=== PATIENT | female | born 1950 ===

== ENCOUNTER 2018-10-30 05:48 | Day surgery (SDC) | payer OTHER ==
--- NOTE | 2018-10-27 17:30 | Pre-op HX & Phy Repo 2 SIG ---
DATE OF ADMISSION: 10/30/2018 DATE OF SURGERY: 10/30/2018. PREOPERATIVE DIAGNOSIS: Total retinal detachment, left eye. BRIEF NOTE: This is a first [facility] admission for Ms. Naranjo. This is a very nice 67-year-old lady, who complained of blurred vision in the left eye after cataract surgery. On examination, she was found to have a total retinal detachment on this side. PAST OCULAR HISTORY: Remarkable for a similar cataract surgery done on the right eye in July of 2017 with out problems. MEDICAL HISTORY: Remarkable for hypertension. MEDICATIONS: She is on metoprolol and hydrochlorothiazide for this condition as well as pravastatin for elevated cholesterol and levothyroxine. ALLERGIES: She is allergic to sulfa and penicillins. OCULAR EXAMINATION: Best vision at the time of admission was 20/25 in the right eye and counting fingers at 2 feet in the left with pressures of 18 and 3. The anterior segment on the right showed a posterior chamber lens in good position. The left eye showed a similar position in posterior chamber lens. Funduscopic exam of the right eye showed a choroidal nevus inferior and slightly nasal to the nerve, but appeared flat and benign. The periphery was without retinal tears. The left fundus showed a macula off total retinal detachment. There was suspicion of the retinal break at the 10 o'clock position mixed with a fold. General physical examination was done by the patient's arabic professor, Dr. Araya. ASSESSMENT: Macula off retinal detachment, total, left eye. PLAN: The plan is to perform a pars plana vitrectomy with scleral buckling, endo drainage, endolaser, and probable silicone oil injection in the left eye. The risks and benefits of surgery were gone over with the patient with potential for infection, the need for additional operations, recurrent detachment, and remote possibility of loss of the eye. The risk of anesthesia was discussed. The patient understands and consents to the surgery, which will be performed on Tuesday. Hank Hernandez M.D. DR: SEEMA JOB#: [id number] CC:
[~2018-10-30] VITALS: Ht 170.2 cm; Wt 108.4 kg
[2018-10-30] VITALS (9 sets, daily range): BP systolic 135–148; BP diastolic 55–95
[~2018-10-30 05:48] MED LIST: ASPIRIN81 MG ORAL; ATORVASTATIN CA20 MG ORAL; HYDROCHLOROTH12.5 M2 ORAL; LEVOTHYROXINE75 MCG ORAL; METOPROLOL TART25 MG ORAL
[2018-10-30] MEDS ORDERED: Phenylephrine 2.5% Op 2ml Soln ONE (05:52)
[2018-10-30] MEDS ORDERED: Flurbiprofen 0.03% Opth Sol 2.5ml ONE (05:52)
[2018-10-30] MEDS ORDERED: Vigamox Opth Soln 3ml ONE (05:52)
[2018-10-30] MEDS ORDERED: Cyclopentolate 1% Opth Sol 2ml ONE (05:52)
[2018-10-30] MEDS: Phenylephrine 2.5% Op 2ml Soln LEFT EYE SCH ×3 (06:18→06:29)
[2018-10-30] MEDS: Cyclopentolate 1% Opth Sol 2ml LEFT EYE SCH ×3 (06:18→06:29)
[2018-10-30] MEDS: Vigamox Opth Soln 3ml LEFT EYE SCH ×3 (06:18→06:29)
[2018-10-30] MEDS: Flurbiprofen 0.03% Opth Sol 2.5ml LEFT EYE SCH ×3 (06:18→06:29)
[2018-10-30] MEDS ORDERED: LR 1000ml 1,000 ML IVLG SCH (07:16)
--- NOTE | 2018-10-30 07:16 | Anethesia Preoperative Eval ---
Anesthesia Pre-op PMH/ROS General Date of Evaluation: Oct 30, 2018 Anesthesiologist: Geo ASA Score: ASA 2 Mallampati Score Class I : Soft palate, uvula, fauces, pillars visible Class II: Soft palate, uvula, fauces visible Class III: Soft palate, base of uvula visible Class IV: Only hard plate visible Mallampati Classification: Class III Surgeon: Carmel Diagnosis: Left retinal detachment Surgical Procedure: Left eye vitrectomy Anesthesia History: none Family History: no anesthesia problems Allergies: Coded Allergies: PENICILLINS (Verified Allergy, Unknown, 10/27/18) SULFA (SULFONAMIDE ANTIBIOTICS) (Verified Allergy, Unknown, 10/27/18) Medications: see eMAR Patient NPO?: Yes NPO Date: Oct 29, 2018 NPO Time: 22:00 Past Medical History Cardiovascular: Reports: HTN, other - HLD; Denies: CAD, [place], valve dz, arrhythmia Pulmonary: Denies: asthma, COPD, SANDHYA, other Gastrointestinal/Genitourinary: Reports: GERD; Denies: CRI, ESRD, other Neurologic/Psychiatric: Denies: dementia, CVA, depression/anxiety, TIA, other Endocrine: Reports: hypothyroidism; Denies: DM, steroids, other HEENT: Reports: [place] (L), [place] (R); Denies: cataract (L), cataract (R), glaucoma, other Hematology/Immune: Denies: anemia, DVT, bleeding disorder, other Musculoskeletal/Integumentary: Denies: OA, RA, DJD, DDD, edema, other Other: obesity - morbid PSxH Narrative: lap sukhwinder, b cataracts, T&A Anesthesia Pre-op Phys. Exam Physician Exam Last Vital Signs Date Time Temp Pulse Resp B/P (MAP) Pulse Ox O2 Delivery O2 Flow Rate FiO2 10/30/18 06:27 Room Air 10/30/18 06:15 97.1 68 18 144/55 98 Constitutional: NAD Cardiovascular: RRR Respiratory: CTA Airway Exam Mallampati Score: Class III MO: limited Neck: short, obese ROM: limited Anesthesia Pre-op A/P Labs see chart Studies Pre-op Studies: EKG - sr Risk Assessment & Plan Assessment: ASA II Plan: GA- as per surgical request Status Change Before Surgery: No Pre-Antibiotics Drug: N/A Cassandra Finley MD Oct 30, 2018 07:16
[2018-10-30] MEDS ORDERED: Midazolam 2mg/2ml Inj ONE (07:18)
[2018-10-30] MEDS ORDERED: fentaNYL 100 mcg/2 mL IV ONE (07:18)
[2018-10-30] MEDS ORDERED: Propofol 200mg/20ml IV ONE (07:18)
[2018-10-30] MEDS ORDERED: EPINEPHrine 1mg/1ml Amp ONE (07:18)
[2018-10-30] MEDS ORDERED: DiphenhydrAMINE 50mg/ml Inj ONE (07:18)
[2018-10-30] MEDS ORDERED: Lidocaine 1% MPF 10mg/ml 5ml ONE (07:18)
[2018-10-30] MEDS ORDERED: Lidocaine 2% MPF 5ml Vial INJ ONE (07:19)
[2018-10-30] MEDS ORDERED: Maxitrol Opth Susp 5ml ONE (07:19)
[2018-10-30] MEDS ORDERED: Neosporin Oph Soln 5ml Btl ONE (07:19)
[2018-10-30] MEDS ORDERED: Kenalog-10 5ml Inj ONE (07:19)
[2018-10-30] MEDS ORDERED: Kenalog-40 1ml Vial ONE (07:19)
[2018-10-30] MEDS ORDERED: Pred Forte 1% Opth Susp 1ml ONE (07:19)
[2018-10-30] MEDS ORDERED: Dexamethasone 4mg/ml vial ONE (07:20)
[2018-10-30] MEDS ORDERED: BSS 500ml btl ONE (07:20)
[2018-10-30] MEDS ORDERED: Povidone-Iodine 5% opth solution ONE (07:20)
[2018-10-30] MEDS ORDERED: BSS 15ml BTL ONE (07:20)
[2018-10-30] MEDS ORDERED: Bupivacaine 0.75% 30ml vial INJ ONE (07:20)
[2018-10-30] MEDS ORDERED: Tetracaine 0.5% Opth 4ml Soln ONE (07:20)
[2018-10-30] MEDS ORDERED: Sodium Hyaluronate 10 mg/ml 0.85ml ONE (07:21)
[2018-10-30] MEDS ORDERED: DiphenhydrAMINE 50mg/ml Inj IVP PRN (07:30)
--- NOTE | 2018-10-30 07:53 | Pre-Procedure Note/Attestation ---
Pre-Procedure Note/Attestation Complete Prior to Procedure Planned Procedure: left Procedure Narrative: PPV, membrane peel, scleral buckle, endodrainage, possible silicone oil injection, possible gas injection Left eye. Indications for Procedure Pre-Operative Diagnosis: Total retinal detachment Left eye Attestation I attest that I discussed the nature of the procedure; its benefits; risks and complications; and alternatives (and the risks and benefits of such alternatives ), prior to the procedure, with the patient (or the patient's legal sales and merchandising representative). I attest that, if there was a reasonable possibility of needing a blood transfusion, the patient (or the patient's legal sales and merchandising representative) was given the [place] [facility] standardized written summary, pursuant to the Kali Hoehne Blood Safety Act ([place] Health and Safety Code # 1645, as amended). I attest that I re-evaluated the patient just prior to the surgery and that there has been no change in the patient's H&P, except as documented below: Hank Hernandez MD Oct 30, 2018 07:53
[2018-10-30] MEDS ORDERED: Sterile Water Irrig 1000ml IRRIG ONE (08:00)
[2018-10-30] MEDS ORDERED: Pred Forte 1% Opth Susp 1ml LEFT EYE ONE (08:00)
[2018-10-30] MEDS ORDERED: NS Irrig 1000ml ONE (08:00)
[2018-10-30] MEDS ORDERED: LR 1000ml ONE (08:00)
[2018-10-30] MEDS ORDERED: Succinylcholine 20mg/ml 10ml vial ONE (10:02)
--- NOTE | 2018-10-30 10:12 | Immediate Post-Op Evaluation ---
Immediate Post-Op Evalulation Immediate Post-Op Evalulation Procedure: Left eye posterior vitrectomy Date of Evaluation: Oct 30, 2018 Time of Evaluation: 10:14 IV Fluids: 300 Blood Products: 0 Estimated Blood Loss: 0 Urinary Output: 0 Blood Pressure Systolic: 146 Blood Pressure Diastolic: 95 Pulse Rate: 71 Respiratory Rate: 16 O2 Sat by Pulse Oximetry: 99 Temperature (Fahrenheit): 98.4 Pain Score (1-10): 0 Nausea: No Vomiting: No Complications 0 Patient Status: awake, reacts, patent, none Hydration Status: adequate Drug: N/A Cassandra Finley MD Oct 30, 2018 10:12
--- NOTE | 2018-10-30 10:14 | 48 Hour Post Anesthesia Eval ---
Post Anesthesia Evaluation Procedure: Left eye posterior vitrectomy Date of Evaluation: Oct 30, 2018 Airway: patent Nausea: No Vomiting: No Hydration Status: adequate Cardiopulmonary Status: at baseline Mental Status/LOC: patient returned to baseline Post-Anesthesia Complications: 0 Follow-up care needed: ready to discharge Cassandra Finley MD Oct 30, 2018 10:14
--- NOTE | 2018-10-30 10:24 | Brief Operative Note ---
Immediate Post Operative Note Operative Note Chief Complaint: Loss of vision Left Eye Pre-op Diagnosis: Total retinal detachment Left eye Procedure: PPV, Scleral buckle (240 band, 287 tire, 70 sleeve) membrane peel, endolaser ( 1331 spots), Kenalog injection and removal, Endodrainage, Silicone oil injection Left eye Post-op Diagnosis: same as pre-op Surgeon: David Anesthesiologist: Gisele Specimen: none Complications: none Condition: stable Fluids: Per anesthesia Estimated Blood Loss: none Drains: none Implant(s) used?: Yes Hank Hernandez MD Oct 30, 2018 10:24
--- NOTE | 2018-10-30 21:15 | Operative Note - Dictated ---
DATE OF OPERATION: 10/30/2018 PREOPERATIVE DIAGNOSIS: Total retinal detachment, left eye. POSTOPERATIVE DIAGNOSIS: Total retinal detachment, left eye. PROCEDURES: 1. Pars plana vitrectomy. 2. Scleral buckle. 3. Endo drainage. 4. Endolaser. 5. Kenalog injection. 6. Silicone oil injection, left eye. SURGEON: Hank Hernandez M.D. TRAINS SERVICE CONDUCTOR: None. ANESTHESIA: LMA general. ANESTHESIOLOGIST: Dr. Jaquez. JUSTIFICATION FOR SURGERY: This 67-year-old lady, status post cataract surgery, was noted to have a total retinal detachment in the left eye. BRIEF NOTE: The patient was brought to the operative room and placed on OR table in supine position. After a time-out was performed and agreed upon by the staff, general LMA anesthesia was induced by Dr. Jaquez. The patient was then prepped and draped in the normal manner. A lid speculum was inserted into the left eye. A 360-degree peritomy was cut with relaxation incisions at 3 and 9 o'clock positions. Additional anesthetic was then injected in the subtenon's space. The muscles were isolated in turn, on white and black ties. The quadrants were explored and found to be without scleral thinning. Initial evaluation showed a total retinal detachment with suspicious areas near 12 o'clock and along the inferior retina at 4 and 6 o'clock. Because of this, it was elected to place a scleral buckle. A segment of 287 tire was chosen as well as a 240 band. The sutures were placed centered 14 mm from the limbus. And the inferior quadrants sutures were placed 6 mm apart and above 3 mm apart. A 240 band was then placed around the eye and secured with a 70 sleeve in the superonasal quadrant. A segment of 287 tire was then placed below the inferior rectus and the two inferior mattress sutures. The knots were tied and rotated posteriorly. The buckle was left moderately shallow within somewhat long for later adjustment. Preparation was then made for vitrectomy. Using a 23-gauge trocar system, cannulas were placed in all except infranasal quadrant. Infusion secured inferotemporally. Vitrectomy was begun posterior to the lens capsular complex taking care to avoid contact. A central core vitrectomy was done followed by peripheral vitrectomy leaving a small vitreous skirt. The retina was noted to be totally detached and care was taken not to engage retina. Examination superiorly showed a large horseshoe tear associated with old pigment. No additional definite breaks were seen, although pigmentation was noted at 6 and 4 o'clock. Because of the bullous nature of the detachment, it was elected to do endo drainage. The posterior hyaloid had been removed with the aid of silicone and so an area just nasal and slightly superior to the optic nerve was chosen. Endo cautery was placed followed by smooth drainage of subretinal fluid through the retinotomy. The retina was noted to flatten nicely without significant folds or puckering. With the retina under air, the endolaser was brought into the eye and a power of 0.4 medina duration 0.1 seconds, a total of 1331 lesions were applied to surround the very large horseshoe tear and pigment superiorly and also the two areas inferiorly. With the retina flattened, endolaser was also used to surround the posterior retinotomy. At this juncture, silicone oil injection was performed using 1000 centistokes of silicone oil. Roughly a 95% fill was obtained with the eye being left normal to soft. The sclerotomies were then closed with 8-0 Vicryl suture and conjunctiva and tenons capsule were pulled up and secured with 6-0 plain catgut. Subconjunctival Decadron and gentamicin were then injected and topical prednisolone drops, Vigamox drops, and atropine drops were instilled. The eye was patched and shielded and the patient was taken to Recovery in excellent condition. There were no complications. Hank Hernandez M.D. DR: BALAJI JOB#: [id number] CC:
== END 2018-10-30 11:40 | disposition home or self-care (01) ==
LOC: SUR 05:48
DX: H33.052 Total retinal detachment, left eye (principal); I10 Essential (primary) hypertension; K21.9 Gastro-esophageal reflux disease without esophagitis; E03.9 Hypothyroidism, unspecified; Z88.2 Allergy status to sulfonamides; Z88.0 Allergy status to penicillin; Z90.49 Acquired absence of other specified parts of digestive tract; E66.01 Morbid (severe) obesity due to excess calories; Z68.37 Body mass index [BMI] 37.0-37.9, adult
CPT/HCPCS: 67108; J0171; J0330; J1100; J1200; J2250; J2704; J3010; J3301; J3470; J3490; 94003; 94150

== ENCOUNTER 2019-01-15 05:35 | Day surgery (SDC) | payer OTHER ==
--- NOTE | 2019-01-11 16:00 | Pre-op HX & Phy Repo 2 SIG ---
DATE OF ADMISSION: 01/15/2019 PREOPERATIVE DIAGNOSIS: Status post retinal detachment repair with silicone oil, left eye. BRIEF NOTE: This is the second [facility] admission for the patient who is very nice 68-year-old lady, who presented with a retinal detachment in the left eye, which was repaired at [place] on 10/30/2018. Silicone oil was used in the repair as well as a scleral buckle. She has done well since procedure with complete flattening of the retina and is now admitted for removal of the silicone oil. PAST MEDICAL HISTORY: Remarkable for hypertension. MEDICATIONS: She is on levothyroxine, metoprolol, hydrochlorothiazide, and pravastatin. ALLERGIES: She has allergies to sulfa and penicillins. SOCIAL HISTORY: She does not smoke. PHYSICAL EXAMINATION: Best vision at the time of admission was 20/30 in the right eye and 20/400 in the left with pressures of 18 and 12. The anterior segment on the right showed a posterior chamber lens in excellent position. The left showed a similarly positioned posterior chamber lens. Fundus on the right showed a choroidal nevus inferior and slightly nasal to the disc. The retina was all attached. The left fundus showed roughly an 85% silicone oil fill. There was retinal ablation to a sizable break at the 12 o'clock position. The posterior retinotomy was noted nasal to the optic nerve. The retina was entirely attached. General physical examination was completed by the patient's managing manager. ASSESSMENT: Status post retinal detachment repair, left eye with silicone oil. PLAN: Plan is to perform a pars plana vitrectomy with removal of the silicone oil and placement of additional laser ablation if needed. The risks and benefits of surgery have been gone over with the patient including the potential for infection, hemorrhage, glaucoma, recurrent detachment, and remote possibility of loss of the eye. The risk of anesthesia was discussed. The patient understands and consents to the surgery, which will be performed on Tuesday. Hank Hernandez M.D. DR: ADRIANA JOB#: [id number] CC:
[2019-01-15] VITALS (9 sets, daily range): BP systolic 113–144; BP diastolic 61–93
[~2019-01-15] VITALS: Ht 170.2 cm; Wt 108.9 kg
[~2019-01-15 05:35] MED LIST changes: +Pred Forte 1% Opth Susp 1ml LEFT EYE ONE
[2019-01-15] MEDS: Cyclopentolate 1% Opth Sol 2ml LEFT EYE SCH ×3 (05:57→06:23)
[2019-01-15] MEDS: Vigamox Opth Soln 3ml LEFT EYE SCH ×3 (05:57→06:24)
[2019-01-15] MEDS: Phenylephrine 2.5% Op 2ml Soln LEFT EYE SCH ×3 (05:58→06:23)
[2019-01-15] MEDS: Flurbiprofen 0.03% Opth Sol 2.5ml LEFT EYE SCH ×3 (05:58→06:23)
[2019-01-15] MEDS ORDERED: Pred Forte 1% Opth Susp 1ml LEFT EYE ONE (06:00)
[2019-01-15] MEDS ORDERED: LR 1000ml ONE (07:00)
[2019-01-15] MEDS ORDERED: NS Irrig 1000ml ONE (07:00)
[2019-01-15] MEDS ORDERED: Propofol 200mg/20ml IV ONE (07:00)
[2019-01-15] MEDS ORDERED: Sterile Water Irrig 1000ml IRRIG ONE (07:00)
[2019-01-15] MEDS ORDERED: Lidocaine 2% MPF 5ml Vial INJ ONE (07:03)
[2019-01-15] MEDS ORDERED: Kenalog-40 1ml Vial ONE (07:03)
[2019-01-15] MEDS ORDERED: EPINEPHrine 1mg/1ml Amp ONE (07:03)
[2019-01-15] MEDS ORDERED: BSS 500ml btl ONE (07:04)
[2019-01-15] MEDS ORDERED: Pred Forte 1% Opth Susp 1ml ONE (07:04)
[2019-01-15] MEDS ORDERED: BSS 15ml BTL ONE (07:04)
[2019-01-15] MEDS ORDERED: Polysporin Opth Oint 3.5gm ONE (07:04)
[2019-01-15] MEDS ORDERED: Dexamethasone 4mg/ml vial ONE (07:04)
[2019-01-15] MEDS ORDERED: Kenalog-10 5ml Inj ONE (07:04)
[2019-01-15] MEDS ORDERED: Povidone-Iodine 5% opth solution ONE (07:05)
[2019-01-15] MEDS ORDERED: Bupivacaine 0.75% 30ml vial INJ ONE (07:05)
[2019-01-15] MEDS ORDERED: Sodium Hyaluronate 10 mg/ml 0.85ml ONE (07:05)
[2019-01-15] MEDS ORDERED: Hyaluronidase 150 units/ml vial ONE (07:05)
[2019-01-15] MEDS ORDERED: Tetracaine 0.5% Opth 4ml Soln ONE (07:05)
[2019-01-15] MEDS ORDERED: fentaNYL 100 mcg/2 mL IV ONE (07:06)
[2019-01-15] MEDS ORDERED: Midazolam 2mg/2ml Inj ONE (07:07)
[2019-01-15] MEDS ORDERED: LR 1000ml 1,000 ML IVLG SCH (07:43)
--- NOTE | 2019-01-15 07:43 | Anethesia Preoperative Eval ---
Anesthesia Pre-op PMH/ROS General Date of Evaluation: Jan 15, 2019 Time of Evaluation: 07:35 Anesthesiologist: France ASA Score: ASA 3 Mallampati Score Class I : Soft palate, uvula, fauces, pillars visible Class II: Soft palate, uvula, fauces visible Class III: Soft palate, base of uvula visible Class IV: Only hard plate visible Mallampati Classification: Class III Surgeon: David Diagnosis: L eye retinal detouchment Surgical Procedure: L eye PPV Anesthesia History: none Social History: smoking - h/o Allergies: Coded Allergies: PENICILLINS (Verified Allergy, Unknown, 10/27/18) SULFA (SULFONAMIDE ANTIBIOTICS) (Verified Allergy, Unknown, 10/27/18) Medications: see eMAR Patient NPO?: Yes Past Medical History Cardiovascular: Reports: HTN; Denies: CAD, [place], valve dz, arrhythmia, other Pulmonary: Reports: S[place]HYA; Denies: asthma, COPD, other Gastrointestinal/Genitourinary: Reports: GERD; Denies: CRI, ESRD, other Neurologic/Psychiatric: Reports: other - chronic pain; Denies: dementia, CVA, depression/anxiety, TIA Endocrine: Reports: hypothyroidism; Denies: DM, steroids, other HEENT: Reports: cataract (L), cataract (R) - bilateral Hematology/Immune: Reports: anemia - mild; Denies: DVT, bleeding disorder, other Musculoskeletal/Integumentary: Reports: OA; Denies: RA, DJD, DDD, edema, other Other: obesity PMH Narrative: as above PSxH Narrative: bilateral cataracts Anesthesia Pre-op Phys. Exam Physician Exam Last Vital Signs Date Time Temp Pulse Resp B/P (MAP) Pulse Ox O2 Delivery O2 Flow Rate FiO2 01/15/19 06:14 Room Air 01/15/19 06:06 98.2 57 18 113/62 97 Constitutional: NAD Neurologic: CN 2-12 intact Cardiovascular: RRR, no M/R/G Respiratory: CTA Gastrointestinal: other - obesity Airway Exam Mallampati Score: Class II MO: full Neck: stiff ROM: limited Teeth: missing Dentures: no upper, no lower Anesthesia Pre-op A/P Labs see chart Studies Pre-op Studies: EKG - NSR Risk Assessment & Plan Assessment: ASA 3 Plan: MAC with retrobulbar block Status Change Before Surgery: No Pre-Antibiotics Drug: none Demian Hough MD Jan 15, 2019 07:43
[2019-01-15] MEDS ORDERED: fentaNYL 100 mcg/2 mL IV PRN (07:45)
[2019-01-15] MEDS ORDERED: Ketorolac 30mg Inj IV PRN (07:45)
--- NOTE | 2019-01-15 07:48 | Pre-Procedure Note/Attestation ---
Pre-Procedure Note/Attestation Complete Prior to Procedure Planned Procedure: left Procedure Narrative: PPV, removal of silicone oil, Endolaser LEFT eye Indications for Procedure Pre-Operative Diagnosis: S/P retinal detachment with silicone oil LEFT eye Attestation I attest that I discussed the nature of the procedure; its benefits; risks and complications; and alternatives (and the risks and benefits of such alternatives ), prior to the procedure, with the patient (or the patient's legal communications representative). I attest that, if there was a reasonable possibility of needing a blood transfusion, the patient (or the patient's legal communications representative) was given the [facility] standardized written summary, pursuant to the [place] Blood Safety Act ([place] Health and Safety Code # 1645, as amended). I attest that I re-evaluated the patient just prior to the surgery and that there has been no change in the patient's H&P, except as documented below: Hank Hernandez MD Jan 15, 2019 07:48
[2019-01-15] MEDS ORDERED: HYDROcodone/Acetamin 5/325 tab ORAL PRN (07:51)
--- NOTE | 2019-01-15 08:51 | Brief Operative Note ---
Immediate Post Operative Note Operative Note Chief Complaint: Blurred vision Left eye Pre-op Diagnosis: S/P retinal detachment with silicone oil LEFT eye Procedure: PPV, silicone oil removal, Endolaser 836 spots, air fluid exchange LEFT eye Post-op Diagnosis: same as pre-op Findings: consistent w/pre-op dx studies Surgeon: David Anesthesiologist: France Anesthesia: MAC Specimen: none Complications: none Condition: stable Fluids: Per Anesthesia Estimated Blood Loss: none Drains: none Implant(s) used?: No - . Hank Hernandez MD Jan 15, 2019 08:51
--- NOTE | 2019-01-15 08:54 | Immediate Post-Op Evaluation ---
Immediate Post-Op Evalulation Immediate Post-Op Evalulation Procedure: L eye PPV, silicon oil removal laser treatment Date of Evaluation: Jan 15, 2019 Time of Evaluation: 08:53 IV Fluids: 300 Blood Products: none Estimated Blood Loss: min Urinary Output: none Blood Pressure Systolic: 143 Blood Pressure Diastolic: 82 Pulse Rate: 62 Respiratory Rate: 18 O2 Sat by Pulse Oximetry: 99 Temperature (Fahrenheit): 97.5 Pain Score (1-10): 1 Nausea: No Vomiting: No Complications none Patient Status: awake, patent, none Hydration Status: adequate Demian Hough MD Jan 15, 2019 08:54
--- NOTE | 2019-01-15 10:09 | 48 Hour Post Anesthesia Eval ---
Post Anesthesia Evaluation Procedure: L eye PPV, silicon oil removal laser treatment Date of Evaluation: Jan 15, 2019 Time of Evaluation: 10:07 Blood Pressure Systolic: 132 0: 64 Pulse Rate: 71 Respiratory Rate: 20 Temperature (Fahrenheit): 97.5 O2 Sat by Pulse Oximetry: 98 Airway: patent Nausea: No Vomiting: No Pain Intensity: 1 Hydration Status: adequate Cardiopulmonary Status: stable Mental Status/LOC: patient returned to baseline Follow-up Care/Observations: n/a Post-Anesthesia Complications: none Follow-up care needed: ready to discharge Demian Hough MD Jan 15, 2019 10:09
--- NOTE | 2019-01-15 15:45 | Operative Note - Dictated ---
DATE OF OPERATION: 01/15/2019 PREOPERATIVE DIAGNOSIS: Status post retinal detachment repair with silicone oil, left eye. POSTOPERATIVE DIAGNOSIS: Status post retinal detachment repair with silicone oil, left eye. PROCEDURES: 1. Pars plana vitrectomy. 2. Endolaser. 3. Removal of silicone oil. 4. Air-fluid exchange, left eye. SURGEON: Hank Hernandez M.D. ASSOCIATE FIELD SERVICE ENGINEER: None. ANESTHESIA: Local with sedation. ANESTHESIOLOGIST: Demian Hough M.D. JUSTIFICATION FOR SURGERY: This 68-year-old lady developed a retinal detachment several months ago, which required a scleral buckle, vitrectomy, and silicone oil injection. She was readmitted for removal of silicon oil. BRIEF NOTE: The patient was brought to the operating room, placed on operating room table in supine position. After a time-out was performed and agreed upon by the staff, and initial monitoring secured by Dr. Hough, retrobulbar and Van Lint blocks were given in the standard way. When the blocks taken effect, she was prepped and draped in normal manner. A lid speculum was inserted into the left eye. Using a 23-gauge trocar system, cannulas were placed in all except infranasal quadrant. Infusion secured inferotemporally. Vitrectomy was begun posterior to the lens by removing the silicone oil bubble with the viscous fluid extractor. This went without difficulty. Additional small bubbles were removed with the vitrector. It was elected to reinforce the retinopexy posterior to the prior line of laser. The endolaser was then brought into the eye and a power of 0.35 medina and duration of 0.1 seconds, a total of 836 lesions were applied inferiorly from placing three rows posterior to the previous area of buckling. No problems were encountered. Superiorly, the wound was noted to be nicely sealed. An air-fluid exchange was then performed to roughly 95% removing residual fluid at a company bubbles. The cannulas were then removed from the eye and each sclerotomy secured with a suture of 8-0 Vicryl with a single surgeon's knot and long facilitating removal in immediate postop period. Subconjunctival Decadron and gentamicin were then injected and topical Maxitrol ointment, prednisolone drops, moxifloxacin drops, and atropine drops were instilled. The eye was patched and shielded and the patient taken to recovery in excellent condition. There were no complications. Hank Hernandez M.D. DR: ANA JOB#: [id number] CC: Hank Hernandez M.D.; Fax#: [phone]
== END 2019-01-15 09:50 | disposition home or self-care (01) ==
LOC: SUR 05:35
DX: H33.22 Serous retinal detachment, left eye (principal); I10 Essential (primary) hypertension; Z79.899 Other long term (current) drug therapy; Z88.2 Allergy status to sulfonamides; Z88.0 Allergy status to penicillin; G47.33 Obstructive sleep apnea (adult) (pediatric); K21.9 Gastro-esophageal reflux disease without esophagitis; E03.9 Hypothyroidism, unspecified; M19.90 Unspecified osteoarthritis, unspecified site; E66.9 Obesity, unspecified; Z68.37 Body mass index [BMI] 37.0-37.9, adult
CPT/HCPCS: 67039; J0171; J1100; J2250; J2704; J3010; J3470; J3490; 94003; 94150